=== PATIENT | female | born 1970 | race Asian ===

== ENCOUNTER 2020-08-02 10:44 | Inpatient (IN) | payer BC ==
[~2020-08-02] VITALS: Ht 154.9 cm; Wt 58.1 kg
--- NOTE | 2020-08-02 11:25 | PHYS DOC ---
Past Medical History Past Medical History: No Pertinent History Past Surgical History: Tubal ligation Smoking Status: Never Smoker Alcohol Use: None General Adult EDM: Chief Complaint: BLOODY STOOL HPI: HPI: Patient is a 49 year old female who presents with blood in her stools for the last 2 months. Patient had some chest pain and palpitations last week and saw her doctor who addi blood work and her hemoglobin was 6.6. Her doctor called her and told her to come to the ER but she was in [place] and returns today for admission and blood transfusions and GI work-up. Patient denies any current abdominal pain but has some low back pain. Patient states that blood in her stool is bright to dark red but denies any melena. Review of Systems: Review of Systems: Constitutional: Denies fever or chills. [] Eyes: Denies change in visual acuity. [] HENT: Denies nasal congestion or sore throat. [] Respiratory: Denies cough or shortness of breath. [] Cardiovascular: Denies chest pain or edema. [] GI: Denies abdominal pain, nausea, vomiting, bloody stools or diarrhea. [] : Denies dysuria. [] Musculoskeletal: Denies back pain or joint pain. [] Integument: Denies rash. [] Neurologic: Denies headache, focal weakness or sensory changes. [] Endocrine: Denies polyuria or polydipsia. [] Lymphatic: Denies swollen glands. [] Psychiatric: Denies depression or anxiety. [] Heart Score: Risk Factors: Risk Factors: DM, Current or recent (<one month) smoker, HTN, HLP, family history of CAD, obesity. Risk Scores: Score 0 - 3: 2.5% MACE over next 6 weeks - Discharge Home Score 4 - 6: 20.3% MACE over next 6 weeks - Admit for Clinical Observation Score 7 - 10: 72.7% MACE over next 6 weeks - Early Invasive Strategies Allergies: Allergies: Allergies Coded Allergies Type Severity Reaction Last Updated Verified No Known Drug Allergies 08/02/20 No Physical Exam: PE: Constitutional: Well developed, well nourished, no acute distress, non-toxic appearance. [] HENT: Normocephalic, atraumatic, bilateral external ears normal, oropharynx moist, no oral exudates, nose normal. [] Eyes: PERRLA, EOMI, conjunctiva normal, no discharge. [] Neck: Normal range of motion, no tenderness, supple, no stridor. [] Cardiovascular:Heart rate regular rhythm, no murmur [] Lungs & Thorax: Bilateral breath sounds clear to auscultation [] Abdomen: Bowel sounds normal, soft, no tenderness, no masses, no pulsatile masses. [] Skin: Warm, dry, no erythema, no rash. [] Back: No tenderness, no CVA tenderness. [] Extremities: No tenderness, no cyanosis, no clubbing, ROM intact, no edema. [] Neurologic: Alert and oriented X 3, normal motor function, normal sensory function, no focal deficits noted. [] Psychologic: Affect normal, judgement normal, mood normal. [] Current Patient Data: Labs: Laboratory Tests Test 08/02/20 11:30 White Blood Count 6.2 x10^3/uL Red Blood Count 4.58 x10^6/uL Hemoglobin 7.1 g/dL Hematocrit 24.8 % Mean Corpuscular Volume 54 fL Mean Corpuscular Hemoglobin 16 pg Mean Corpuscular Hemoglobin Concent 29 g/dL Red Cell Distribution Width 20.2 % Platelet Count 324 x10^3/uL Neutrophils (%) (Auto) 53 % Lymphocytes (%) (Auto) 33 % Monocytes (%) (Auto) 9 % Eosinophils (%) (Auto) 4 % Basophils (%) (Auto) 1 % Neutrophils # (Auto) 3.3 x10^3/uL Lymphocytes # (Auto) 2.0 x10^3/uL Monocytes # (Auto) 0.6 x10^3/uL Eosinophils # (Auto) 0.2 x10^3/uL Basophils # (Auto) 0.1 x10^3/uL Platelet Estimate Adequate Polychromasia Slight Hypochromasia Marked Anisocytosis Mod Microcytosis Marked Macrocytosis Slight Ovalocytes Mod Prothrombin Time 12.9 SEC Prothromb Time International Ratio 1.0 Activated Partial Thromboplast Time 27 SEC Sodium Level 140 mmol/L Potassium Level 3.8 mmol/L Chloride Level 105 mmol/L Carbon Dioxide Level 28 mmol/L Anion Gap 7 Blood Urea Nitrogen 14 mg/dL Creatinine 0.8 mg/dL Estimated GFR (Cockcroft-Gault) 76.6 BUN/Creatinine Ratio 18 Glucose Level 91 mg/dL Calcium Level 8.6 mg/dL Total Bilirubin 0.3 mg/dL Aspartate Amino Transf (AST/SGOT) 17 U/L Alanine Aminotransferase (ALT/SGPT) 18 U/L Alkaline Phosphatase 50 U/L Total Protein 8.2 g/dL Albumin 3.5 g/dL Albumin/Globulin Ratio 0.7 Lipase 156 U/L Serum Test, Qualitative Negative Vital Signs: Vital Signs Date Time Temp Pulse Resp B/P (MAP) Pulse Ox O2 Delivery O2 Flow Rate FiO2 08/02/20 11:10 98.5 85 18 176/97 (123) 100 Room Air 98.5 EKG: EKG: EKG interpreted by me normal sinus rhythm with rate 82 normal axis normal intervals normal ST segments [] Radiology/Procedures: Radiology/Procedures: [] Course & Med Decision Making: Course & Med Decision Making Pertinent Labs and Imaging studies reviewed. (See chart for details) [] 41-year-old female presents with GI bleed over the last 2 months. Patient has a profound anemia borderline needing a blood transfusion at this time. Patient will be admitted with a GI consult. Dr. Pedroza will admit. Jaimie Disclaimer: Jaimie Disclaimer: This electronic medical record was generated, in whole or in part, using a voice recognition dictation system. Departure Departure Impression: Primary Impression: Lower GI bleed Additional Impression: Profound anemia Disposition: ADMITTED INPATIENT Admitting Physician: JOSÉ MIGUEL (Kasia) Condition: STABLE Referrals: AMALIA STARKS MD (PCP) Justicifation of Admission Dx: Justifications for Admission: Justification of Admission Dx: Yes Comments: GI bleed profound anemia JUAN JEFFERSON MD Aug 02, 2020 11:25
[2020-08-02 11:49] LABS: BASO # 0.1 x10^3/uL (0.0-0.2); BASO % 1 % (0-3); EOS # 0.2 x10^3/uL (0.0-0.7); EOS % 4 % (0-3); HEMATOCRIT 24.8 % (36.0-47.0); HEMOGLOBIN 7.1 g/dL (12.0-15.5); LYMPH % 33 % (24-48); MEAN CORPUSCULAR HEMOGLOBIN 16 pg (25-35); MEAN CORPUSCULAR HGB CONC 29 g/dL (31-37); MEAN CORPUSCULAR VOLUME 54 fL (79-100); MONO # 0.6 x10^3/uL (0.0-1.1); MONO % 9 % (0-9); NEUT # 3.3 x10^3/uL (1.8-7.7); NEUT % 53 % (31-73); PLATELET COUNT 324 x10^3/uL (140-400); RED BLOOD COUNT 4.58 x10^6/uL (3.50-5.40); RED CELL DISTRIBUTION WIDTH 20.2 % (11.5-14.5); WHITE BLOOD COUNT 6.2 x10^3/uL (4.0-11.0)
[2020-08-02 12:02] LABS: CALCIUM 8.6 mg/dL (8.5-10.1); CREATININE 0.8 mg/dL (0.6-1.0); GFR 76.6; POTASSIUM 3.8 mmol/L (3.5-5.1)
[2020-08-02 12:06] LABS: ALBUMIN 3.5 g/dL (3.4-5.0); ALBUMIN/GLOBULIN RATIO 0.7 (1.0-1.7); TOTAL BILIRUBIN 0.3 mg/dL (0.2-1.0); TOTAL PROTEIN 8.2 g/dL (6.4-8.2)
[2020-08-02 12:11] LABS: PREG TEST PT QUAL NEGATIVE (NEG); PROTHROMBIN TIME PATIENT 12.9 SEC (11.7-14.0)
--- NOTE | 2020-08-02 12:51 | PDOC1 ---
History and Physical Date of Admission Date of Admission DATE: 08/02/20 TIME: 12:51 Identification/Chief Complaint Chief Complaint seen in er with severe anemia 49 year old female who presents with blood in her stools for the last 2 months. Patient had some chest pain and palpitations last week and saw her doctor who addi blood work and her hemoglobin was 6.6. Her doctor called her and told her to come to the ER but she was in [place] and returns today for admission and blood transfusions and GI work-up. denies any current abdominal pain but has some low back pain. Patient states that blood in her stool is bright to dark red but denies any melena. hgb here is 7/1 taking ibuprofen more regularly recently for headaches Past Medical History Past Medical History Past Medical History Past Medical History Past Medical History: No Pertinent History Past Surgical History: Tubal ligation Smoking Status: Never Smoker Alcohol Use: None FHX HTN Family History Family History: Hypertension Social History Smoke: No ALCOHOL: occassional Drugs: None Allergies Allergies: Coded Allergies: No Known Drug Allergies (Unverified , 08/02/20) ROS Review of System Constitutional: Denies fever or chills. [] Eyes: Denies change in visual acuity. [] HENT: Denies nasal congestion or sore throat. [] Respiratory: Denies cough or shortness of breath. [] Cardiovascular: Denies chest pain or edema. [] GI: Denies abdominal pain, nausea, vomiting, notes pos bloody stools x months . [] : Denies dysuria. [] Musculoskeletal: Denies back pain or joint pain. [] Integument: Denies rash. [] Neurologic: Denies headache, focal weakness or sensory changes. [] Endocrine: Denies polyuria or polydipsia. [] Lymphatic: Denies swollen glands. [] Psychiatric: Denies depression or anxiety. [] 14 pt ros otherwise neg Physical Exam Physical Exam Constitutional: Well developed, well nourished, no acute distress, non-toxic appearance. [] HENT: Normocephalic, atraumatic, bilateral external ears normal, oropharynx moist, no oral exudates, nose normal. [] Eyes: PERRLA, EOMI, conjunctiva normal, no discharge. [] Neck: Normal range of motion, no tenderness, supple, no stridor. [] Cardiovascular:Heart rate regular rhythm, no murmur [] Lungs & Thorax: Bilateral breath sounds clear to auscultation [] Abdomen: Bowel sounds normal, soft, no tenderness, no masses, no pulsatile masses. [] Skin: Warm, dry, no erythema, no rash. [] Back: No tenderness, no CVA tenderness. [] Extremities: No tenderness, no cyanosis, no clubbing, ROM intact, no edema. [] Neurologic: Alert and oriented X 3, normal motor function, normal sensory function, no focal deficits noted. [] Psychologic: Affect normal, judgment normal, mood normal. [] General: Alert, Oriented X3, Cooperative, No acute distress HEENT: Atraumatic, PERRLA, EOMI, Mucous membr. moist/pink Lungs: Normal air movement Heart: S1S2, RRR, no thrills, no gallops, no murmurs Breasts: Not examined Abdomen: Normal bowel sounds, Soft Rectal Exam: not examined PELVIC: Examination not indicated Extremities: No cyanosis, No edema Neuro: Normal speech, Strength at 5/5 X4 ext, Normal tone, Sensation intact, Cranial nerves 3-12 NL Psych/Mental Status: Mental status NL, Mood NL Vitals Vitals Vital Signs Date Time Temp Pulse Resp B/P (MAP) Pulse Ox O2 Delivery O2 Flow Rate FiO2 08/02/20 12:18 79 18 160/95 (116) 100 Room Air 08/02/20 11:10 98.5 98.5 Labs Labs Laboratory Tests Test 08/02/20 11:30 White Blood Count 6.2 x10^3/uL (4.0-11.0) Red Blood Count 4.58 x10^6/uL (3.50-5.40) Hemoglobin 7.1 g/dL (12.0-15.5) Hematocrit 24.8 % (36.0-47.0) Mean Corpuscular Volume 54 fL (79-100) Mean Corpuscular Hemoglobin 16 pg (25-35) Mean Corpuscular Hemoglobin Concent 29 g/dL (31-37) Red Cell Distribution Width 20.2 % (11.5-14.5) Platelet Count 324 x10^3/uL (140-400) Neutrophils (%) (Auto) 53 % (31-73) Lymphocytes (%) (Auto) 33 % (24-48) Monocytes (%) (Auto) 9 % (0-9) Eosinophils (%) (Auto) 4 % (0-3) Basophils (%) (Auto) 1 % (0-3) Neutrophils # (Auto) 3.3 x10^3/uL (1.8-7.7) Lymphocytes # (Auto) 2.0 x10^3/uL (1.0-4.8) Monocytes # (Auto) 0.6 x10^3/uL (0.0-1.1) Eosinophils # (Auto) 0.2 x10^3/uL (0.0-0.7) Basophils # (Auto) 0.1 x10^3/uL (0.0-0.2) Prothrombin Time 12.9 SEC (11.7-14.0) Prothromb Time International Ratio 1.0 (0.8-1.1) Activated Partial Thromboplast Time 27 SEC (24-38) Sodium Level 140 mmol/L (136-145) Potassium Level 3.8 mmol/L (3.5-5.1) Chloride Level 105 mmol/L (98-107) Carbon Dioxide Level 28 mmol/L (21-32) Anion Gap 7 (6-14) Blood Urea Nitrogen 14 mg/dL (7-20) Creatinine 0.8 mg/dL (0.6-1.0) Estimated GFR (Cockcroft-Gault) 76.6 BUN/Creatinine Ratio 18 (6-20) Glucose Level 91 mg/dL (70-99) Calcium Level 8.6 mg/dL (8.5-10.1) Total Bilirubin 0.3 mg/dL (0.2-1.0) Aspartate Amino Transf (AST/SGOT) 17 U/L (15-37) Alanine Aminotransferase (ALT/SGPT) 18 U/L (14-59) Alkaline Phosphatase 50 U/L (46-116) Total Protein 8.2 g/dL (6.4-8.2) Albumin 3.5 g/dL (3.4-5.0) Albumin/Globulin Ratio 0.7 (1.0-1.7) Lipase 156 U/L (73-393) Serum Test, Qualitative Negative (NEG) Laboratory Tests Test 08/02/20 11:30 White Blood Count 6.2 x10^3/uL (4.0-11.0) Red Blood Count 4.58 x10^6/uL (3.50-5.40) Hemoglobin 7.1 g/dL (12.0-15.5) Hematocrit 24.8 % (36.0-47.0) Mean Corpuscular Volume 54 fL (79-100) Mean Corpuscular Hemoglobin 16 pg (25-35) Mean Corpuscular Hemoglobin Concent 29 g/dL (31-37) Red Cell Distribution Width 20.2 % (11.5-14.5) Platelet Count 324 x10^3/uL (140-400) Neutrophils (%) (Auto) 53 % (31-73) Lymphocytes (%) (Auto) 33 % (24-48) Monocytes (%) (Auto) 9 % (0-9) Eosinophils (%) (Auto) 4 % (0-3) Basophils (%) (Auto) 1 % (0-3) Neutrophils # (Auto) 3.3 x10^3/uL (1.8-7.7) Lymphocytes # (Auto) 2.0 x10^3/uL (1.0-4.8) Monocytes # (Auto) 0.6 x10^3/uL (0.0-1.1) Eosinophils # (Auto) 0.2 x10^3/uL (0.0-0.7) Basophils # (Auto) 0.1 x10^3/uL (0.0-0.2) Prothrombin Time 12.9 SEC (11.7-14.0) Prothromb Time International Ratio 1.0 (0.8-1.1) Activated Partial Thromboplast Time 27 SEC (24-38) Sodium Level 140 mmol/L (136-145) Potassium Level 3.8 mmol/L (3.5-5.1) Chloride Level 105 mmol/L (98-107) Carbon Dioxide Level 28 mmol/L (21-32) Anion Gap 7 (6-14) Blood Urea Nitrogen 14 mg/dL (7-20) Creatinine 0.8 mg/dL (0.6-1.0) Estimated GFR (Cockcroft-Gault) 76.6 BUN/Creatinine Ratio 18 (6-20) Glucose Level 91 mg/dL (70-99) Calcium Level 8.6 mg/dL (8.5-10.1) Total Bilirubin 0.3 mg/dL (0.2-1.0) Aspartate Amino Transf (AST/SGOT) 17 U/L (15-37) Alanine Aminotransferase (ALT/SGPT) 18 U/L (14-59) Alkaline Phosphatase 50 U/L (46-116) Total Protein 8.2 g/dL (6.4-8.2) Albumin 3.5 g/dL (3.4-5.0) Albumin/Globulin Ratio 0.7 (1.0-1.7) Lipase 156 U/L (73-393) Serum Test, Qualitative Negative (NEG) VTE Prophylaxis Ordered VTE Prophylaxis Devices: Yes VTE Pharmacological Prophylaxi: Contraindicated Assessment/Plan Assessment/Plan Impression: Lower GI bleed, exclude mass microcytic indices SUSPECT FE DEF Profound anemia NSAID USE ADMITTED gi consult CT ABD/ PELVIS now NPO Consider endoscopy, colonoscopy fe panel, retic, ferritin IV PROTONIX DRIP Transfuse hgb < 7 scd no lovenox IV IRON Justifications for Admission Other Justification SANDRA TONEY MD Aug 02, 2020 12:51
[2020-08-02 13:03] LABS: ANISOCYTOSIS MOD; HYPOCHROMIA MARKED; MICROCYTOSIS MARKED; OVALOCYTES MOD; PLT ESTIMATE ADEQUATE (ADEQUATE); POLYCHROMASIA SLIGHT
--- NOTE | 2020-08-02 15:01 | PDOC2 ---
GI CONSULT Date of Service: DATE: 08/02/20 TIME: 14:48 Reason For Consult: GI bleed HPI: HPI: 49 y/o female seen in ER. Has had mild intermittent rectal bleeding over the years attributed to hemorrhoids - was told at one point she could try OTC topical treatments but might need surgery. During the pandemic, strayed a bit from her usual healthy diet and had some constipation. At that time, had about a week of painless rectal bleeding that was much worse than in the past - "red blood dripping like a faucet." Bleeding resolved. She saw her PCP last for a left lower back ache x 3 months. Had labs. Was notified on Friday that labs were normal except for low hemoglobin (6.6 I believe). She started eating more fruits and vegetables and started taking iron BID. Bleeding recurred this morning (with normal stool - no constipation this time) and she had some shortness of breath, nausea, dizziness, and a headache so she decided to come get checked out. Occasional heartburn improved w/ Tums. No dysphagia, vomiting/hematemesis, abdominal pain, diarrhea, melena, bloating, change in appetite, or weight loss. No previous EGD or colonoscopy. Has an office visit scheduled with Dr. Houston tomorrow at 10:30 a.m. No GB, liver, pancreas, or PUD history. Has been taking ibuprofen more regularly recently for headaches - about 3 weeks ago was taking daily. PMH: PMH: hemorrhoids tubal ligation FH: Family History: No pertinent hx (denies GI cancers and IBD) Social History: Smoke: No ALCOHOL: occassional Drugs: None ROS: GEN: +fatigue HEENT: Denies blurred vision, sore throat CV: Denies chest pain RESP: +SOAh GI: Per HPI : Denies hematuria, dysuria ENDO: Denies weight changes NEURO: +dizziness MSK: +back pain +headache SKIN: Denies jaundice, pruritus Vitals: Vitals: Vital Signs Date Time Temp Pulse Resp B/P (MAP) Pulse Ox O2 Delivery O2 Flow Rate FiO2 08/02/20 14:19 87 18 185/92 (123) 100 Room Air 08/02/20 11:10 98.5 98.5 Labs: Labs: Laboratory Tests Test 08/02/20 11:30 White Blood Count 6.2 x10^3/uL (4.0-11.0) Red Blood Count 4.58 x10^6/uL (3.50-5.40) Hemoglobin 7.1 g/dL (12.0-15.5) Hematocrit 24.8 % (36.0-47.0) Mean Corpuscular Volume 54 fL (79-100) Mean Corpuscular Hemoglobin 16 pg (25-35) Mean Corpuscular Hemoglobin Concent 29 g/dL (31-37) Red Cell Distribution Width 20.2 % (11.5-14.5) Platelet Count 324 x10^3/uL (140-400) Neutrophils (%) (Auto) 53 % (31-73) Lymphocytes (%) (Auto) 33 % (24-48) Monocytes (%) (Auto) 9 % (0-9) Eosinophils (%) (Auto) 4 % (0-3) Basophils (%) (Auto) 1 % (0-3) Neutrophils # (Auto) 3.3 x10^3/uL (1.8-7.7) Lymphocytes # (Auto) 2.0 x10^3/uL (1.0-4.8) Monocytes # (Auto) 0.6 x10^3/uL (0.0-1.1) Eosinophils # (Auto) 0.2 x10^3/uL (0.0-0.7) Basophils # (Auto) 0.1 x10^3/uL (0.0-0.2) Platelet Estimate Adequate (ADEQUATE) Polychromasia Slight Hypochromasia Marked Anisocytosis Mod Microcytosis Marked Macrocytosis Slight Ovalocytes Mod Prothrombin Time 12.9 SEC (11.7-14.0) Prothromb Time International Ratio 1.0 (0.8-1.1) Activated Partial Thromboplast Time 27 SEC (24-38) Sodium Level 140 mmol/L (136-145) Potassium Level 3.8 mmol/L (3.5-5.1) Chloride Level 105 mmol/L (98-107) Carbon Dioxide Level 28 mmol/L (21-32) Anion Gap 7 (6-14) Blood Urea Nitrogen 14 mg/dL (7-20) Creatinine 0.8 mg/dL (0.6-1.0) Estimated GFR (Cockcroft-Gault) 76.6 BUN/Creatinine Ratio 18 (6-20) Glucose Level 91 mg/dL (70-99) Calcium Level 8.6 mg/dL (8.5-10.1) Total Bilirubin 0.3 mg/dL (0.2-1.0) Aspartate Amino Transf (AST/SGOT) 17 U/L (15-37) Alanine Aminotransferase (ALT/SGPT) 18 U/L (14-59) Alkaline Phosphatase 50 U/L (46-116) Total Protein 8.2 g/dL (6.4-8.2) Albumin 3.5 g/dL (3.4-5.0) Albumin/Globulin Ratio 0.7 (1.0-1.7) Lipase 156 U/L (73-393) Serum Test, Qualitative Negative (NEG) Allergies: Coded Allergies: No Known Drug Allergies (Unverified , 08/02/20) PE: GEN: NAD HEENT: Atraumatic, PERRL LUNGS: CTAB HEART: RRR ABD: NABS, S/ND/NT EXTREMITY: No edema SKIN: No rashes, no jaundice NEURO/PSYCH: A & O 3 A/P: A/P: Rectal bleeding Microcytic anemia Occasional heartburn CRC screen - none/average risk HTN, low back pain, NSAID use R/o COVID-19 -- Reviewed w/ Dr. Pennington - agree w/ NPO. Observe for bleeding. Add PPI. Check anemia parameters for completeness. Will need 'scopes eventually, could be done as outpt pending clinical course. IVF/transfusion needs per primary. VANNESSA MARMOLEJO Aug 02, 2020 15:01
[2020-08-02] MEDS ORDERED: 0.9 % SODIUM CHLORIDE 10 ML DISP.SYRIN. IV PRN (15:30)
[2020-08-02] MEDS ORDERED: DOCUSATE SODIUM 100 MG CAPSULE. PO PRN (15:30)
[2020-08-02] MEDS ORDERED: ONDANSETRON PF 4 MG/2 ML VIAL. IV PRN (15:30)
[2020-08-02] MEDS ORDERED: IRON SUCROSE COMPLEX 200 MG in IV NORMAL SALINE 100ML 100 ML IV ONE (15:30)
[2020-08-02] MEDS ORDERED: ALBUTEROL SULFATE 2.5 MG/3 ML NEBU. NEB PRN (15:30)
[2020-08-02] MEDS ORDERED: guaiFENesin ORAL 200 MG/10 ML LIQUID. PO PRN (15:30)
[2020-08-02] MEDS ORDERED: ACETAMINOPHEN 325 MG TABLET. PO PRN (15:30)
[2020-08-02] MEDS ORDERED: LORazepam 0.5 MG TABLET PO PRN (15:30)
[2020-08-02] MEDS: IV NORMAL SALINE 1000ML BAG 1,000 ML IV SCH ×2 (15:42→20:58)
[2020-08-02] MEDS: PANTOPRAZOLE IV PUSH 40 MG VIAL. IVP SCH (15:46)
--- NOTE | 2020-08-02 16:32 | RAD ---
CT STUDY OF THE ABDOMEN AND PELVIS WITHOUT CONTRAST CLINICAL INDICATIONS: GI bleeding. TECHNIQUE: Noncontrast helical CT scanning of the abdomen and pelvis was performed. Without contrast, the sensitivity to detect organ pathology and GI tract pathology is decreased. PQRS compliance Statement One or more of the following individualized dose reduction techniques were utilized for this study: 1. Automated exposure control 2. Adjustment of the mA and/or kV according to patient size 3. Use of iterative reconstruction technique COMPARISON: None available. FINDINGS: The liver and spleen and pancreas are unremarkable on this noncontrast study. The gallbladder demonstrates mild wall thickening and enhancement and there is a small amount of pericholecystic free fluid. This may be seen with cholecystitis. No extrahepatic biliary ductal dilatation is seen. No adrenal mass is evident. No renal mass is seen on either side on this noncontrast study. No hydronephrosis or hydroureter or urinary tract stone is evident. Urinary bladder wall is smooth. No dominant ovarian cyst or mass is evident. No uterine mass is seen. No focal aneurysmal dilatation of the abdominal aorta is seen. No enlarged abdominal or pelvic lymphadenopathy is seen. No bowel wall thickening or pericolonic inflammatory change or mesenteric edema or obstructive bowel pattern is seen. The appendix is not readily identified but there are no secondary CT findings of appendicitis. No free fluid or free air is evident. No lung base consolidation is evident. No lytic process is seen. IMPRESSION: Possible cholecystitis. Recommend right upper quadrant abdomen ultrasound study. Electronically signed by: Rafal Hernandez MD (08/02/2020 4:29 PM) [id number]
[2020-08-02 16:47] VITALS: BP 197/105
[2020-08-02] MEDS: PANTOPRAZOLE SODIUM IV DRIP 80 MG in IV NORMAL SALINE 100ML 100 ML IV SCH (17:13)
[2020-08-02 19:30] VITALS: BP 151/89
[2020-08-02 22:18] VITALS: BP 143/83
[2020-08-03] VITALS (8 sets, daily range): BP systolic 137–170; BP diastolic 65–90
[2020-08-03] MEDS: PANTOPRAZOLE SODIUM IV DRIP 80 MG in IV NORMAL SALINE 100ML 100 ML IV SCH (02:07)
--- NOTE | 2020-08-03 02:47 | EKG ---
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
[2020-08-03 05:53] LABS: BASO # 0.1 x10^3/uL (0.0-0.2); BASO % 2 % (0-3); EOS # 0.3 x10^3/uL (0.0-0.7); EOS % 5 % (0-3); HEMATOCRIT 24.4 % (36.0-47.0); HEMOGLOBIN 7.1 g/dL (12.0-15.5); LYMPH # 1.9 x10^3/uL (1.0-4.8); LYMPH % 31 % (24-48); MEAN CORPUSCULAR HEMOGLOBIN 16 pg (25-35); MEAN CORPUSCULAR HGB CONC 29 g/dL (31-37); MEAN CORPUSCULAR VOLUME 55 fL (79-100); MONO # 0.5 x10^3/uL (0.0-1.1); MONO % 9 % (0-9); NEUT # 3.2 x10^3/uL (1.8-7.7); NEUT % 53 % (31-73); PLATELET COUNT 342 x10^3/uL (140-400); RED BLOOD COUNT 4.42 x10^6/uL (3.50-5.40); RED CELL DISTRIBUTION WIDTH 20.8 % (11.5-14.5)
[2020-08-03 06:06] LABS: CALCIUM 8.4 mg/dL (8.5-10.1); CREATININE 0.7 mg/dL (0.6-1.0); GFR 89.3
[2020-08-03 06:07] LABS: POTASSIUM 3.6 mmol/L (3.5-5.1)
[2020-08-03] MEDS: IV NORMAL SALINE 1000ML BAG 1,000 ML IV SCH ×3 (07:18→20:37)
[2020-08-03] MEDS: PANTOPRAZOLE IV PUSH 40 MG VIAL. IVP SCH (10:30)
--- NOTE | 2020-08-03 12:01 | PDOC ---
Date of Service: DATE: 08/03/20 TIME: 11:57 Subjective: Subjective: No bleeding. Feels fine. Asks if popcorn could have caused anemia. Objective: Objective: Nurse called earlier because had PPI drip and IV push ordered - told to stop drip. Vital Signs: Vital Signs Date Time Temp Pulse Resp B/P (MAP) Pulse Ox O2 Delivery O2 Flow Rate FiO2 08/03/20 11:00 98.5 78 21 154/77 (102) 100 Room Air 98.5 Labs: Laboratory Tests Test 08/02/20 14:06 08/02/20 21:50 08/03/20 03:30 SARS-CoV-2 Antigen (Rapid) Negative Hemoglobin 7.3 g/dL 7.1 g/dL White Blood Count 6.0 x10^3/uL Red Blood Count 4.42 x10^6/uL Hematocrit 24.4 % Mean Corpuscular Volume 55 fL Mean Corpuscular Hemoglobin 16 pg Mean Corpuscular Hemoglobin Concent 29 g/dL Red Cell Distribution Width 20.8 % Platelet Count 342 x10^3/uL Neutrophils (%) (Auto) 53 % Lymphocytes (%) (Auto) 31 % Monocytes (%) (Auto) 9 % Eosinophils (%) (Auto) 5 % Basophils (%) (Auto) 2 % Neutrophils # (Auto) 3.2 x10^3/uL Lymphocytes # (Auto) 1.9 x10^3/uL Monocytes # (Auto) 0.5 x10^3/uL Eosinophils # (Auto) 0.3 x10^3/uL Basophils # (Auto) 0.1 x10^3/uL Sodium Level 141 mmol/L Potassium Level 3.6 mmol/L Chloride Level 106 mmol/L Carbon Dioxide Level 25 mmol/L Anion Gap 10 Blood Urea Nitrogen 9 mg/dL Creatinine 0.7 mg/dL Estimated GFR (Cockcroft-Gault) 89.3 Glucose Level 69 mg/dL Calcium Level 8.4 mg/dL PE: GEN: NAD LUNGS: CTAB HEART: RRR ABD: NABS, S/ND/NT NEURO/PSYCH: A & O 3 A/P: Rectal bleeding - no recurrence VIN - Hgb stable, received IV iron COVID negative -- Okay for clears today. Plan for EGD in a.m. w/ outpt colonoscopy to follow. Justicifation of Admission Dx: Justifications for Admission: Justification of Admission Dx: Yes VANNESSA MARMOLEJO Aug 03, 2020 12:01
--- NOTE | 2020-08-03 13:29 | NUR ---
SS following for discharge planning. SS reviewed pt chart and discussed with pt RN. Pt is from home and is currently on room air. COVID19 negative. Pt on clear liquid diet. EGD tentatively scheduled for tomorrow morning. SS will continue to follow for discharge planning.
[2020-08-03] MEDS ORDERED: ACETAMINOPHEN 325 MG TABLET. PO PRN (16:45)
[2020-08-03] MEDS ORDERED: diphenhydrAMINE ORAL ELIXIR 12.5 MG/5 ML ML PO PRN (16:45)
[2020-08-03] MEDS ORDERED: FERROUS SULFATE 325 MG TABLET. PO SCH (17:00)
--- NOTE | 2020-08-03 17:30 | PDOC ---
PROGRESS NOTES Date of Service: DATE: 08/03/20 TIME: 17:26 Chief Complaint Chief Complaint Lower GI bleed, CT negative for massess, will need outpatient colonoscopy as per GI microcytic indices SUSPECT FE DEF Profound anemia NSAID USE Plan: gi consult noted CT ABD/ PELVIS noted and discussed with patient Clear liquid as per integrity consultant, EGD in the am continue PPI iron given Transfuse hgb < 7 scd no lovenox IV IRON History of Present Illness History of Present Illness Identification/Chief Complaint Chief Complaint seen in er with severe anemia 49 year old female who presents with blood in her stools for the last 2 months. Patient had some chest pain and palpitations last week and saw her doctor who addi blood work and her hemoglobin was 6.6. Her doctor called her and told her to come to the ER but she was in [place] and returns today for admission and blood transfusions and GI work-up. denies any current abdominal pain but has some low back pain. Patient states that blood in her stool is bright to dark red but denies any melena. hgb here is 7/1 taking ibuprofen more regularly recently for headaches 08/03 Patient feeling well today compared to yesterday, curious to see if she will have an endoscopy or colonoscopy, reassurance provided, results of CT scan discussed, she denies RUQ pain, no fever chills or jaundice noted Tentatively eGD in the am as per GI Vitals Vitals Vital Signs Date Time Temp Pulse Resp B/P (MAP) Pulse Ox O2 Delivery O2 Flow Rate FiO2 08/03/20 15:00 98.5 57 21 140/65 (90) 100 Room Air 98.5 Physical Exam General: Alert, Oriented X3, Cooperative, No acute distress Heart: Regular rate, Normal S1, Normal S2, No murmurs Lungs: Clear Abdomen: Normal bowel sounds, Soft Extremities: No cyanosis, No edema Labs LABS Laboratory Tests Test 08/02/20 21:50 08/03/20 03:30 08/03/20 16:15 Hemoglobin 7.3 g/dL (12.0-15.5) 7.1 g/dL (12.0-15.5) 6.9 g/dL (12.0-15.5) White Blood Count 6.0 x10^3/uL (4.0-11.0) Red Blood Count 4.42 x10^6/uL (3.50-5.40) Hematocrit 24.4 % (36.0-47.0) Mean Corpuscular Volume 55 fL (79-100) Mean Corpuscular Hemoglobin 16 pg (25-35) Mean Corpuscular Hemoglobin Concent 29 g/dL (31-37) Red Cell Distribution Width 20.8 % (11.5-14.5) Platelet Count 342 x10^3/uL (140-400) Neutrophils (%) (Auto) 53 % (31-73) Lymphocytes (%) (Auto) 31 % (24-48) Monocytes (%) (Auto) 9 % (0-9) Eosinophils (%) (Auto) 5 % (0-3) Basophils (%) (Auto) 2 % (0-3) Neutrophils # (Auto) 3.2 x10^3/uL (1.8-7.7) Lymphocytes # (Auto) 1.9 x10^3/uL (1.0-4.8) Monocytes # (Auto) 0.5 x10^3/uL (0.0-1.1) Eosinophils # (Auto) 0.3 x10^3/uL (0.0-0.7) Basophils # (Auto) 0.1 x10^3/uL (0.0-0.2) Sodium Level 141 mmol/L (136-145) Potassium Level 3.6 mmol/L (3.5-5.1) Chloride Level 106 mmol/L (98-107) Carbon Dioxide Level 25 mmol/L (21-32) Anion Gap 10 (6-14) Blood Urea Nitrogen 9 mg/dL (7-20) Creatinine 0.7 mg/dL (0.6-1.0) Estimated GFR (Cockcroft-Gault) 89.3 Glucose Level 69 mg/dL (70-99) Calcium Level 8.4 mg/dL (8.5-10.1) Assessment and Plan Assessmemt and Plan Problems Medical Problems: (1) Lower GI bleed Status: Acute (2) Profound anemia Status: Acute Comment Review of Relevant I have reviewed the following items rui (where applicable) has been applied. Labs Laboratory Tests Test 08/02/20 11:30 08/02/20 14:06 08/02/20 21:50 08/03/20 03:30 White Blood Count 6.2 x10^3/uL (4.0-11.0) 6.0 x10^3/uL (4.0-11.0) Red Blood Count 4.64 x10^6/uL (3.50-5.70) 4.42 x10^6/uL (3.50-5.40) Hemoglobin 7.1 g/dL (12.0-15.5) 7.3 g/dL (12.0-15.5) 7.1 g/dL (12.0-15.5) Hematocrit 24.8 % (36.0-47.0) 24.4 % (36.0-47.0) Mean Corpuscular Volume 54 fL (79-100) 55 fL (79-100) Mean Corpuscular Hemoglobin 16 pg (25-35) 16 pg (25-35) Mean Corpuscular Hemoglobin Concent 29 g/dL (31-37) 29 g/dL (31-37) Red Cell Distribution Width 20.2 % (11.5-14.5) 20.8 % (11.5-14.5) Platelet Count 324 x10^3/uL (140-400) 342 x10^3/uL (140-400) Neutrophils (%) (Auto) 53 % (31-73) 53 % (31-73) Lymphocytes (%) (Auto) 33 % (24-48) 31 % (24-48) Monocytes (%) (Auto) 9 % (0-9) 9 % (0-9) Eosinophils (%) (Auto) 4 % (0-3) 5 % (0-3) Basophils (%) (Auto) 1 % (0-3) 2 % (0-3) Neutrophils # (Auto) 3.3 x10^3/uL (1.8-7.7) 3.2 x10^3/uL (1.8-7.7) Lymphocytes # (Auto) 2.0 x10^3/uL (1.0-4.8) 1.9 x10^3/uL (1.0-4.8) Monocytes # (Auto) 0.6 x10^3/uL (0.0-1.1) 0.5 x10^3/uL (0.0-1.1) Eosinophils # (Auto) 0.2 x10^3/uL (0.0-0.7) 0.3 x10^3/uL (0.0-0.7) Basophils # (Auto) 0.1 x10^3/uL (0.0-0.2) 0.1 x10^3/uL (0.0-0.2) Platelet Estimate Adequate (ADEQUATE) Polychromasia Slight Hypochromasia Marked Anisocytosis Mod Microcytosis Marked Macrocytosis Slight Ovalocytes Mod Absolute Reticulocyte Count 0.134 x10^6/uL (0.020-0.120) Percent Reticulocyte Count 2.9 % (0.5-2.3) Immature Reticulocyte Fraction 0.60 (0.20-0.60) Prothrombin Time 12.9 SEC (11.7-14.0) Prothromb Time International Ratio 1.0 (0.8-1.1) Activated Partial Thromboplast Time 27 SEC (24-38) Sodium Level 140 mmol/L (136-145) 141 mmol/L (136-145) Potassium Level 3.8 mmol/L (3.5-5.1) 3.6 mmol/L (3.5-5.1) Chloride Level 105 mmol/L (98-107) 106 mmol/L (98-107) Carbon Dioxide Level 28 mmol/L (21-32) 25 mmol/L (21-32) Anion Gap 7 (6-14) 10 (6-14) Blood Urea Nitrogen 14 mg/dL (7-20) 9 mg/dL (7-20) Creatinine 0.8 mg/dL (0.6-1.0) 0.7 mg/dL (0.6-1.0) Estimated GFR (Cockcroft-Gault) 76.6 89.3 BUN/Creatinine Ratio 18 (6-20) Glucose Level 91 mg/dL (70-99) 69 mg/dL (70-99) Calcium Level 8.6 mg/dL (8.5-10.1) 8.4 mg/dL (8.5-10.1) Iron Level 44 ug/dL (50-170) Total Iron Binding Capacity 392 ug/dL (250-450) Iron Saturation 11 % (15-34) Ferritin 11 ng/mL (8-252) Total Bilirubin 0.3 mg/dL (0.2-1.0) Aspartate Amino Transf (AST/SGOT) 17 U/L (15-37) Alanine Aminotransferase (ALT/SGPT) 18 U/L (14-59) Alkaline Phosphatase 50 U/L (46-116) Total Protein 8.2 g/dL (6.4-8.2) Albumin 3.5 g/dL (3.4-5.0) Albumin/Globulin Ratio 0.7 (1.0-1.7) Lipase 156 U/L (73-393) Vitamin B12 Level 568 pg/mL (247-911) Serum Test, Qualitative Negative (NEG) SARS-CoV-2 Antigen (Rapid) Negative (NEGATIVE) Test 08/03/20 16:15 Hemoglobin 6.9 g/dL (12.0-15.5) Laboratory Tests Test 08/02/20 21:50 08/03/20 03:30 08/03/20 16:15 Hemoglobin 7.3 g/dL (12.0-15.5) 7.1 g/dL (12.0-15.5) 6.9 g/dL (12.0-15.5) White Blood Count 6.0 x10^3/uL (4.0-11.0) Red Blood Count 4.42 x10^6/uL (3.50-5.40) Hematocrit 24.4 % (36.0-47.0) Mean Corpuscular Volume 55 fL (79-100) Mean Corpuscular Hemoglobin 16 pg (25-35) Mean Corpuscular Hemoglobin Concent 29 g/dL (31-37) Red Cell Distribution Width 20.8 % (11.5-14.5) Platelet Count 342 x10^3/uL (140-400) Neutrophils (%) (Auto) 53 % (31-73) Lymphocytes (%) (Auto) 31 % (24-48) Monocytes (%) (Auto) 9 % (0-9) Eosinophils (%) (Auto) 5 % (0-3) Basophils (%) (Auto) 2 % (0-3) Neutrophils # (Auto) 3.2 x10^3/uL (1.8-7.7) Lymphocytes # (Auto) 1.9 x10^3/uL (1.0-4.8) Monocytes # (Auto) 0.5 x10^3/uL (0.0-1.1) Eosinophils # (Auto) 0.3 x10^3/uL (0.0-0.7) Basophils # (Auto) 0.1 x10^3/uL (0.0-0.2) Sodium Level 141 mmol/L (136-145) Potassium Level 3.6 mmol/L (3.5-5.1) Chloride Level 106 mmol/L (98-107) Carbon Dioxide Level 25 mmol/L (21-32) Anion Gap 10 (6-14) Blood Urea Nitrogen 9 mg/dL (7-20) Creatinine 0.7 mg/dL (0.6-1.0) Estimated GFR (Cockcroft-Gault) 89.3 Glucose Level 69 mg/dL (70-99) Calcium Level 8.4 mg/dL (8.5-10.1) Medications Current Medications Pantoprazole Sodium (PROTONIX VIAL for IV PUSH) 40 mg DAILYAC IVP Last adminis tered on 08/03/20at 10:30; Start 08/02/20 at 16:00; Stop 08/03/20 at 12:00; Status DC Sodium Chloride (Normal Saline Flush) 3 ml QSHIFT PRN IV AFTER MEDS AND BLOOD DRAWS; Start 08/02/20 at 15:30 Sodium Chloride 1,000 ml @ 125 mls/hr Q8H IV Last administered on 08/03/20at 07:18; Start 08/02/20 at 15:18 Ondansetron HCl (Zofran) 4 mg PRN Q4HRS PRN IV NAUSEA/VOMITING; Start 08/02/20 at 15:30 Acetaminophen (Tylenol) 650 mg PRN Q4HRS PRN PO TEMP OVER 100.4F OR MILD PAIN; Start 08/02/20 at 15:30 Docusate Sodium (Colace) 100 mg PRN BID PRN PO HARD STOOLS; Start 08/02/20 at 15:30 Albuterol Sulfate (Ventolin Neb Soln) 2.5 mg PRN Q4HRS PRN NEB SHORTNESS OF BREATH; Start 08/02/20 at 15:30 Guaifenesin (Robitussin) 200 mg PRN Q4HRS PRN PO COUGH; Start 08/02/20 at 15:30 Lorazepam (Ativan) 0.5 mg PRN Q4HRS PRN PO ANXIETY / AGITATION Last administered on 08/02/20at 17:12; Start 08/02/20 at 15:30 Pantoprazole Sodium 80 mg/ Sodium Chloride 100 ml @ 10 mls/hr Q10H IV Last administered on 08/03/20at 02:07; Start 08/02/20 at 16:00; Stop 08/03/20 at 10:21; Status DC Iron Sucrose 200 mg/Sodium Chloride 110 ml @ 55 mls/hr 1X ONCE IV Last administered on 08/02/20at 17:13; Start 08/02/20 at 15:30; Stop 08/02/20 at 17:29; Status DC Ferrous Sulfate (Feosol) 325 mg BIDWMEALS PO ; Start 08/03/20 at 17:00; Stop 08/03/20 at 12:21; Status DC Pantoprazole Sodium (Protonix) 40 mg DAILYAC PO ; Start 08/04/20 at 07:30 Ringer's Solution 1,000 ml @ 50 mls/hr Q20H IV ; Start 08/04/20 at 07:00; Stop 08/04/20 at 18:59 Acetaminophen (Tylenol) 650 mg 1X PRN PRN PO PRE-TRANSFUSION; Start 08/03/20 at 16:45; Stop 08/04/20 at 16:44 Diphenhydramine HCl (Benadryl Oral Elixir) 12.5 mg 1X PRN PRN PO PRE- TRANSFUSION; Start 08/03/20 at 16:45; Stop 08/04/20 at 16:44 Active Scripts Active Reported No Known Medications Prior To Admisstion (Info) Each 1 Each DAILY Vitals/I & O Vital Sign - Last 24 Hours 08/02/20 08/02/20 08/02/20 08/02/20 19:30 20:00 20:59 22:18 Temp 98.7 98.2 98.7 98.2 Pulse 80 80 Resp 22 20 B/P (MAP) 151/89 (109) 143/83 (103) Pulse Ox 99 100 99 O2 Delivery Room Air Room Air Room Air 08/03/20 08/03/20 08/03/20 08/03/20 02:12 07:00 08:00 11:00 Temp 98.1 98.5 98.5 98.1 98.5 98.5 Pulse 74 82 78 Resp 16 20 21 B/P (MAP) 146/77 (100) 164/84 (110) 154/77 (102) Pulse Ox 98 100 100 O2 Delivery Room Air Room Air Room Air Room Air 08/03/20 15:00 Temp 98.5 98.5 Pulse 57 Resp 21 B/P (MAP) 140/65 (90) Pulse Ox 100 O2 Delivery Room Air Intake and Output 08/02/20 08/02/20 08/03/20 15:00 23:00 07:00 Intake Total 0 ml Balance 0 ml Justicifation of Admission Dx: Justifications for Admission: Justification of Admission Dx: Yes WILMA GRIMALDO MD Aug 03, 2020 17:30
[2020-08-04 02:19] VITALS: BP 134/84
[2020-08-04] MEDS ORDERED: IV RINGERS,LACTATED 1000ML 1,000 ML IV ONE (06:30)
[2020-08-04] MEDS ORDERED: IV RINGERS,LACTATED 1000ML 1,000 ML IV SCH (07:00)
[2020-08-04 07:18] VITALS: BP 166/94
[2020-08-04] MEDS: IV NORMAL SALINE 1000ML BAG 1,000 ML IV SCH (07:18)
[2020-08-04] MEDS ORDERED: PANTOPRAZOLE 40 MG TABLET.DR. PO SCH (07:30)
--- NOTE | 2020-08-04 09:24 | PDOC4 ---
Operative Note Operative Note EGD Meds propofol per anesthesia Pre-op dx acute blood loss anemia/rectal bleed Post-op dx non-erosive gastritis Plan o/p colonoscopy to further assess release home today JUAN MA MD Aug 04, 2020 09:24
[2020-08-04] MEDS ORDERED: LIDOCAINE 2% PF 5 ML VIAL. ONE (09:27)
[2020-08-04] MEDS ORDERED: PROPOFOL 10 MG/ML (20ML) VIAL. IV ONE (09:27)
[2020-08-04 10:30] VITALS: BP 166/92
--- NOTE | 2020-08-04 12:12 | PDOC3 ---
Discharge Summary Visit Information Date of Admission: Aug 02, 2020 Date of Discharge: Aug 04, 2020 Admitting Diagnosis Comment: Lower GI bleed, exclude mass microcytic indices SUSPECT FE DEF Profound anemia NSAID USE Final Diagnosis Problems Medical Problems: (1) Lower GI bleed most likely diverticular bleed Status: Acute (2) Profound anemia status post iron infusion Status: Acute Brief Hospital Course Allergies Allergies Coded Allergies Type Severity Reaction Last Updated Verified No Known Drug Allergies 08/04/20 No Vital Signs Vital Signs Date Time Temp Pulse Resp B/P (MAP) Pulse Ox O2 Delivery O2 Flow Rate FiO2 08/04/20 10:30 99.1 81 20 166/92 (116) 100 Room Air 99.1 Lab Results Laboratory Tests Test 08/02/20 14:06 08/02/20 21:50 08/03/20 03:30 08/03/20 16:15 Coronavirus (PCR) Not detected (Not Detected) SARS-CoV-2 Antigen (Rapid) Negative (NEGATIVE) Hemoglobin 7.3 g/dL (12.0-15.5) 7.1 g/dL (12.0-15.5) 6.9 g/dL (12.0-15.5) White Blood Count 6.0 x10^3/uL (4.0-11.0) Red Blood Count 4.42 x10^6/uL (3.50-5.40) Hematocrit 24.4 % (36.0-47.0) Mean Corpuscular Volume 55 fL (79-100) Mean Corpuscular Hemoglobin 16 pg (25-35) Mean Corpuscular Hemoglobin Concent 29 g/dL (31-37) Red Cell Distribution Width 20.8 % (11.5-14.5) Platelet Count 342 x10^3/uL (140-400) Neutrophils (%) (Auto) 53 % (31-73) Lymphocytes (%) (Auto) 31 % (24-48) Monocytes (%) (Auto) 9 % (0-9) Eosinophils (%) (Auto) 5 % (0-3) Basophils (%) (Auto) 2 % (0-3) Neutrophils # (Auto) 3.2 x10^3/uL (1.8-7.7) Lymphocytes # (Auto) 1.9 x10^3/uL (1.0-4.8) Monocytes # (Auto) 0.5 x10^3/uL (0.0-1.1) Eosinophils # (Auto) 0.3 x10^3/uL (0.0-0.7) Basophils # (Auto) 0.1 x10^3/uL (0.0-0.2) Sodium Level 141 mmol/L (136-145) Potassium Level 3.6 mmol/L (3.5-5.1) Chloride Level 106 mmol/L (98-107) Carbon Dioxide Level 25 mmol/L (21-32) Anion Gap 10 (6-14) Blood Urea Nitrogen 9 mg/dL (7-20) Creatinine 0.7 mg/dL (0.6-1.0) Estimated GFR (Cockcroft-Gault) 89.3 Glucose Level 69 mg/dL (70-99) Calcium Level 8.4 mg/dL (8.5-10.1) Test 08/03/20 22:25 Hemoglobin 8.1 g/dL (12.0-15.5) Laboratory Tests Test 08/03/20 16:15 08/03/20 22:25 Hemoglobin 6.9 g/dL (12.0-15.5) 8.1 g/dL (12.0-15.5) Brief Hospital Course History and Physical Date of Admission Date of Admission DATE: 08/02/20 TIME: 12:51 Identification/Chief Complaint Chief Complaint seen in er with severe anemia 49 year old female who presents with blood in her stools for the last 2 months. Patient had some chest pain and palpitations last week and saw her doctor who addi blood work and her hemoglobin was 6.6. Her doctor called her and told her to come to the ER but she was in [place] and returns today for admission and blood transfusions and GI work-up. denies any current abdominal pain but has some low back pain. Patient states that blood in her stool is bright to dark red but denies any melena. hgb here is 7/1 taking ibuprofen more regularly recently for headaches Patient underwent an EGD with the following results Lower GI bleed, CT negative for massess, will need outpatient colonoscopy as per GI microcytic indices SUSPECT FE DEF Profound anemia NSAID USE She was deemed appropriate for discharge after trying a regular diet which he tolerated well. Most likely etiology was a diverticular bleed. GI marketing operations consultant will schedule her for an outpatient colonoscopy for further assessment. Signs and symptoms of concern when to seek medical attention were discussed prior to discharge Assessment Assessment Gen.: well-developed well-nourished in no apparent distress Head: Normal shape atraumatic Eyes: Pupils equal reactive to light and accommodation, normal conjunctivae and lids Ears: Normal shape Nose: Normal shape no trauma Mouth: No exudates of the back of throat no thrush no lesions Neck: Supple no JVD no carotid bruit or lymphadenopathy no thyromegaly Chest: Lungs clear to auscultation with good inspiratory effort no crackles rales or rhonchi Cardiovascular: S1-S2 regular rhythm no murmurs gallops or rubs Abdomen: Bowel sounds present soft nontender no hepatosplenomegaly appreciated sign Extremities: No clubbing no cyanosis no edema peripheral pulses palpated bilaterally Neurological: Alert awake oriented in person time place and situation, cranial nerves II through XII intact, no motor or sensory deficits appreciated Psych: Appropriate mood, cooperative Discharge Information Condition at Discharge: Improved Follow Up: Weeks Disposition/Orders: D/C to Home Scheduled Info (No Known Medications Prior To Admisstion) Each, 1 EACH DAILY for unknown, (Reported) Entered as Reported by: RENNY SANDERS RN on 08/02/201819 Last Taken: Unknown Dose on Unknown Date & Time Last Action: New Order on 08/02/201819 by RENNY SANDERS RN Justicifation of Admission Dx: Justifications for Admission: Justification of Admission Dx: Yes WILMA GRIMALDO MD Aug 04, 2020 12:12
--- NOTE | 2020-08-04 12:55 | NUR ---
Discharge Note: UMER RAMOS [address] Discharge instructions and discharge home medications reviewed with Patient and a copy given. All questions have been answered and understanding verbalized. The following instructions and handouts were given: f/u with Dr. Pennington. The office will call to schedule appt. Discontinued lines and drains: Peripheral IV intact. Patient discharged to Home or Self Care with Family Member via [facility]
== END 2020-08-04 12:55 | disposition home or self-care (01) | DRG 378 ==
LOC: ER 10:44 → ED HOLD 12:41 → 2 NORTH 14:02
PROVIDERS: ADMIT Family Medicine; ATTEND Family Medicine
PROC: 30233N1 Transfusion of Nonautologous Red Blood Cells into Peripheral Vein, Percutaneous Approach (ICD-10-PCS; 2020-08-03)
PROC: 0DJ08ZZ Inspection of Upper Intestinal Tract, Via Natural or Artificial Opening Endoscopic (ICD-10-PCS; principal; 2020-08-04 10:00)
DX: K57.91 Diverticulosis of intestine, part unspecified, without perforation or abscess with bleeding (principal); D62 Acute posthemorrhagic anemia; Z20.828 Contact with and (suspected) exposure to other viral communicable diseases; K64.9 Unspecified hemorrhoids; K59.00 Constipation, unspecified; K29.70 Gastritis, unspecified, without bleeding; M54.5 Low back pain; Z82.49 Family history of ischemic heart disease and other diseases of the circulatory system; Z98.51 Tubal ligation status; Z79.1 Long term (current) use of non-steroidal anti-inflammatories (NSAID)
CPT/HCPCS: 36415; 43235; 74176; 80048; 80053; 82607; 82728; 83540; 83550; 83690; 84703; 85018; 85025; 85045; 85610; 85730; 86850; 86900; 86901; 86920; 87426; 93005; 96374; 99285; C9113; J1756; J2704; J7030; J7120; P9016; G0378; U0003-CS